=== PATIENT | female | born 1975 | race American Indian/Alaskan Native ===

== ENCOUNTER 2020-08-02 02:59 | Emergency (ER) | payer BC ==
[2020-08-02] MEDS ORDERED: KETOROLAC 30 MG/1 ML INJ IV ONE (03:16)
[2020-08-02] MEDS ORDERED: SUMAtriptan SUCCINATE 6 MG/0.5 ML INJ SUB-Q ONE (03:16)
[2020-08-02] MEDS ORDERED: SODIUM CHLORIDE 0.9% 1000 ML 1,000 ML IV ONE (03:16)
[2020-08-02] MEDS ORDERED: METOCLOPRAMIDE 10 MG/2 ML INJ IV ONE (03:16)
[2020-08-02] MEDS ORDERED: dexAMETHasone 4 MG/ML VIAL IV ONE (03:16)
[2020-08-02] MEDS ORDERED: diphenhydrAMINE 50 MG/ML VIAL IV ONE (03:16)
--- NOTE | 2020-08-02 03:19 | Emergency Department Report ---
ED Headache HPI - General Chief Complaint: Headache Stated Complaint: MIGRANE Time Seen by Provider: 08/02/20 03:16 Source: patient Exam Limitations: no limitations - History of Present Illness Initial Comments: Chief complaint: Migraine HPI: This is a 45-year-old female with history of migraine for 10 years. She had the onset of headache gradually right-sided frontal temporal region posterior to the right eye. 10/10 in severity. Persistent. Positive nausea. Positive photophobia. This headache is typical for her migraine headache. Unknown trigger. She does work long hours. She may not be getting enough sleep. She has been lost to follow-up with her neurologist Dr. Mendez. She was taking Aimovig once monthly. Timing/Duration: 24 hours Quality: severe Head Injury Location: frontal, temporal Recent Head Trauma: frequent headaches Modifying Factors: improves with: exposure to light Associated Symptoms: flushing, other (Nausea, feels flushed feels hot) Allergies/Adverse Reactions: Allergies No Known Allergies Allergy (Unverified 05/04/18 06:47) Home Medications: Ambulatory Orders Ondansetron [Zofran Odt] 4 mg PO Q8HR PRN #10 tab.rapdis 08/02/20 SUMAtriptan succinate [Imitrex] 50 mg PO ONCE PRN #2 tablet 08/02/20 ED Review of Systems ROS: Stated complaint: MIGRANE Other details as noted in HPI Comment: All other systems reviewed and negative Constitutional: denies: chills, malaise Respiratory: denies: cough, shortness of breath Gastrointestinal: nausea. denies: abdominal pain Neurological: headache ED Past Medical Hx - Past Medical History Previous Medical History?: Yes Hx Headaches / Migraines: Yes - Surgical History Past Surgical History?: Yes Additional Surgical History: . Tubal Ligation - Social History Smoking Status: Never Smoker Substance Use Type: None - Medications Home Medications: Home Medications Medication Instructions Recorded Confirmed Last Taken Type Ondansetron [Zofran Odt] 4 mg PO Q8HR PRN #10 tab.rapdis 08/02/20 Unknown Rx SUMAtriptan succinate [Imitrex] 50 mg PO ONCE PRN #2 tablet 08/02/20 Unknown Rx ED Physical Exam - General Limitations: No Limitations General appearance: alert, in no apparent distress - Head Head exam: Present: atraumatic, normocephalic - Eye Eye exam: Present: normal appearance - ENT ENT exam: Present: mucous membranes moist - Neck Neck exam: Present: normal inspection, full ROM - Respiratory Respiratory exam: Present: normal lung sounds bilaterally. Absent: respiratory distress, wheezes, rales, rhonchi - Cardiovascular Cardiovascular Exam: Present: regular rate, normal rhythm, normal heart sounds. Absent: systolic murmur, diastolic murmur, rubs, gallop - GI/Abdominal GI/Abdominal exam: Present: soft, normal bowel sounds. Absent: distended, tenderness, guarding, rebound - Extremities Exam Extremities exam: Present: normal inspection - Neurological Exam Neurological exam: Present: alert, oriented X3, normal gait - Psychiatric Psychiatric exam: Present: normal affect, normal mood - Skin Skin exam: Present: warm, dry, intact, normal color. Absent: rash ED Course Vital Signs 08/02/20 03:03 Temperature 97.9 F Pulse Rate 81 Respiratory 18 Rate Blood Pressure 132/97 O2 Sat by Pulse 97 Oximetry ED Medical Decision Making - Medical Decision Making This is a 45-year-old female history of migraine headaches for the last 10 years. Patient has typical headache with right-sided throbbing frontal temporal region posterior eye. No red flags to indicate dangerous headache such as sudden onset, fever, neurological deficits. Patient received multiple medications including subcutaneous Imitrex, dexamethasone, diphenhydramine, ibuprofen, ketorolac, Reglan, morphine, IV fluids normal saline bolus, Zofran. Critical care attestation.: If time is entered above; I have spent that time in minutes in the direct care of this critically ill patient, excluding procedure time. ED Disposition Clinical Impression: Migraine headache Disposition: DC-01 TO HOME OR SELFCARE Is pt being admited?: No Does the pt Need Aspirin: No Condition: Stable Instructions: Recurrent Migraine Headache Prescriptions: SUMAtriptan succinate [Imitrex] 50 mg PO ONCE PRN #2 tablet PRN Reason: Headache Ondansetron [Zofran Odt] 4 mg PO Q8HR PRN #10 tab.rapdis PRN Reason: Headache Referrals: EVERTON NDIAYE MD [Staff Physician] - 3-5 Days
[2020-08-02] MEDS ORDERED: ONDANSETRON 4 MG/2 ML INJ IV ONE (05:04)
[2020-08-02] MEDS ORDERED: MORPHINE 4 MG/1 ML INJ IV ONE (05:04)
[2020-08-02] MEDS ORDERED: IBUPROFEN 800 MG TAB PO ONE (05:04)
[2020-08-02] MEDS ORDERED: SUMAtriptan SUCCINATE 50 MG TAB PO ONE (05:30)
[2020-08-02] MEDS ORDERED: HYDROmorphone 1 MG/1 ML INJ IV PRN (05:49)
[2020-08-02 07:28] VITALS: BP 123/79
== END 2020-08-02 07:28 | disposition home or self-care (01) ==
LOC: ED 02:59
DX: G43.909 Migraine, unspecified, not intractable, without status migrainosus (principal); Z98.51 Tubal ligation status; Z98.890 Other specified postprocedural states; Z79.899 Other long term (current) drug therapy
CPT/HCPCS: 96361; 96372; 96374; 96375; 99283; J1100; J1170; J1200; J1885; J2270; J2405; J2765; J7030; J3030